=== PATIENT | female | born 1950 | race Caucasian/White ===

== ENCOUNTER → 2021-10-10 | Outpatient (REF) | payer MEDICARE ==
[~2021-10-10] MED LIST: CENTTAB PO; FISH100049 PO; HYDR-2541 PO; LEVO125T4 PO; LISI40TA52 PO; TUMS1000 PO
[2021-10-10 18:54] LABS: HEPATITIS B CORE ANTIBODY IGM NEGATIVE (NEGATIVE); HEPATITIS B SURFACE ANTIGEN NEGATIVE (NEGATIVE); HEPATITIS C VIRUS ABY INDEX 0.1 INDEX (<0.8)
== END ==
LOC: M LAB REF 17:40
PROVIDERS: ATTEND Registered Nurse
DX: Z00.00 Encounter for general adult medical examination without abnormal findings (principal)

== ENCOUNTER → 2023-01-06 | Outpatient (CLI) | payer MEDICARE | LOC: M EKG 14:46 | PROVIDERS: ATTEND Physician Assistant Medical | DX: R00.2 Palpitations (principal) ==

== ENCOUNTER → 2023-10-27 | Outpatient (CLI) | payer MEDICARE | LOC: M WUC 13:40 | PROVIDERS: ATTEND Physician Assistant Medical | DX: M19.041 Primary osteoarthritis, right hand (principal) ==

== ENCOUNTER → 2023-11-10 | Outpatient (REF) | payer MEDICARE ==
[2023-11-10 17:39] LABS: C REACTIVE PROTEIN QUANTITATIV < 0.40 MG/DL (<1.0)
[2023-11-10 19:45] LABS: RHEUMATOID FACTOR QUANT < 3.5 IU/ML (<14)
[2023-11-15 18:19] LABS: ANA PATTERN Nuclear, Speckled (NEGATIVE); ANA SCREEN, IFA POSITIVE (NEGATIVE)
== END ==
LOC: M LAB REF 16:25
PROVIDERS: ATTEND Physician Assistant Medical
DX: R22.33 Localized swelling, mass and lump, upper limb, bilateral (principal); M13.0 Polyarthritis, unspecified

== ENCOUNTER → 2024-04-21 | Outpatient (REF) | payer MEDICARE | LOC: M LAB REF 12:38 | PROVIDERS: ATTEND Physician Assistant Medical | DX: E78.5 Hyperlipidemia, unspecified (principal) ==